=== PATIENT | male | born 1970 | race African-American/Black ===

== ENCOUNTER 2019-08-16 10:02 | Inpatient (IN) ==
[2019-08-16] MEDS ORDERED: ACETAMINOPHEN 500 MG TABLET PO STA (10:36)
[2019-08-16 10:59] LABS: Basophils % 0.2 % (0.0-0.8); Hematocrit 38.5 VOL% (42.0-52.0); Hemoglobin 12.4 GM/DL (14.0-18.0); Immature Granulocytes % 0.3 %; Immature Granulocytes Absolute 0.02 #; Lymphocytes # 0.2 10*3/uL (1.4-4.0); Lymphocytes % 3.8 % (21.2-54.2); Mean Corpuscular HGB Conc 32.2 GM/DL (32-36); Mean Platelet Volume 9.2 FL (9.6-12.0); Monocytes % 4.7 % (1.7-12.7); Platelet Count 248 T/CUMM (130-400); Red Blood Count 4.53 MC/CUMM (3.8-5.5); Red Cell Distribution Width 13.1 % (9.3-17.3); White Blood Count 6.1 T/CUMM (4-12)
[2019-08-16 11:29] LABS: Alanine Aminotransferase 20 U/L (16-61); Albumin 3.1 G/DL (3.4-5.0); Alkaline Phosphatase 63 U/L (45-117); Aspartate Amino Transferase 24 U/L (0-37); Blood Urea Nitrogen 14 MG/DL (7-18); Calcium 9.3 MG/DL (8.5-10.1); Estimated Glom Filtration Rate 97 ML/MIN; Glucose 187 MG/DL (74-106); Osmolality,Calculated 275.1 MOS/KG (273-304); Total Protein 7.8 G/DL (6.4-8.3)
[2019-08-16 11:33] LABS: Anisocytosis 1+; Band Neutrophils 6 % (0-10); Eosinophils 1 % (0-10); Segmented Neutrophils 87 % (50-85); Total Cells Counted 100
[2019-08-16 11:34] LABS: Hypochromasia 1+; Microcytosis Slight; Platelet Estimate Normal; Polychromasia Slight
[2019-08-16] MEDS ORDERED: SODIUM CHLORIDE 0.9% 2,000 ML IV STA (11:44)
[2019-08-16] MEDS ORDERED: AZITHROMYCIN INJ 500 MG in SODIUM CHLORIDE 0.9% 250 ML IV STA (11:56)
[2019-08-16] MEDS ORDERED: cefTRIAXone 1,000 MG VIAL ONE (11:56)
[2019-08-16] MEDS ORDERED: cefTRIAXone 1,000 MG in SODIUM CHLORIDE 0.9% 100 ML IV STA (11:56)
[2019-08-16] MEDS ORDERED: ONDANSETRON 4 MG/2 ML VIAL IV PRN (12:42)
[2019-08-16] MEDS ORDERED: DEXTROSE 10% 250 ML BAG IV PRN (12:42)
[2019-08-16] MEDS ORDERED: GLUCAGON 1 MG VIAL IM PRN (12:42)
[2019-08-16] MEDS: SODIUM CHLORIDE 0.9% 1,000 ML IV SCH (16:36)
[2019-08-16] MEDS: PIPERACILLIN/TAZOBACTAM 3,375 MG in SODIUM CHLORIDE 0.9% 100 ML IV SCH (16:37)
[2019-08-16] MEDS: POTASSIUM CHLORIDE 20 MEQ TABLET PO PRN (16:37)
[2019-08-16] MEDS: ENOXAPARIN 40 MG/0.4 ML SYRINGE SUBCUT SCH (16:37)
[2019-08-16] MEDS ORDERED: AZITHROMYCIN INJ 500 MG in SODIUM CHLORIDE 0.9% 250 ML IV SCH (20:00)
[2019-08-16] MEDS: VANCOMYCIN INJ 1,250 MG in SODIUM CHLORIDE 0.9% 250 ML IV SCH (20:14)
[2019-08-16] MEDS: AZITHROMYCIN 250 MG TABLET PO SCH (20:14)
[2019-08-16 20:20] LABS: Apearance,Urine CLEAR (Clear); Bilirubin,Urine Negative (Negative); Blood, Urine Negative (Negative); Glucose,Urine (UA) Negative (Negative); Ketones,Urine Negative (Negative); Mucus,Urine Occasional /LPF (Occasional); Nitrite,Urine Negative (Negative); Protein,Urine Negative; RBC,Urine 1 /HPF (0-4); Urine Color Yellow (Yellow); Urine Specific Gravity 1.013 (1.001-1.035); Urine Urobilinogen < 2.0 EU/DL (0.2-1.0); WBC,Urine 2 /HPF (0-6)
[2019-08-16] MEDS: ACETAMINOPHEN 325 MG TABLET PO PRN (22:38)
[2019-08-17] MEDS: PIPERACILLIN/TAZOBACTAM 3,375 MG in SODIUM CHLORIDE 0.9% 100 ML IV SCH ×3 (00:36→16:02)
[2019-08-17] MEDS: ACETAMINOPHEN 325 MG TABLET PO PRN ×3 (03:24→20:05)
[2019-08-17] MEDS ORDERED: IBUPROFEN 600 MG TABLET PO ONE (03:54)
[2019-08-17 04:01] LABS: Eosinophils % 0.2 % (0.00-10.9); Hematocrit 38.3 VOL% (42.0-52.0); Hemoglobin 11.9 GM/DL (14.0-18.0); Immature Granulocytes % 0.4 %; Immature Granulocytes Absolute 0.02 #; Lymphocytes # 0.3 10*3/uL (1.4-4.0); Lymphocytes % 6.4 % (21.2-54.2); Mean Corpuscular HGB Conc 31.1 GM/DL (32-36); Mean Platelet Volume 9.3 FL (9.6-12.0); Monocytes % 6.6 % (1.7-12.7); Neutrophils % 86.4 % (38.7-73.9); Platelet Count 224 T/CUMM (130-400); Red Cell Distribution Width 13.2 % (9.3-17.3); White Blood Count 4.6 T/CUMM (4-12)
[2019-08-17 04:21] LABS: Albumin 2.8 G/DL (3.4-5.0); Bilirubin,Total 0.8 MG/DL (0.2-1.0); Calcium 8.6 MG/DL (8.5-10.1); Osmolality,Calculated 272.8 MOS/KG (273-304); Risk Ratio 3.33; Thyroid Stimulating Hormone 0.527 uIU/ml (0.358-3.74); Total Protein 7.5 G/DL (6.4-8.3); VLDL CHOLESTEROL 16.4 MG/DL
[2019-08-17] MEDS: hydroCHLOROthiazide 25 MG TABLET PO SCH (08:04)
[2019-08-17] MEDS: FOLIC ACID 1 MG TABLET PO SCH (08:04)
[2019-08-17] MEDS: predniSONE 10 MG TABLET PO SCH (08:05)
[2019-08-17] MEDS: VANCOMYCIN INJ 1,250 MG in SODIUM CHLORIDE 0.9% 250 ML IV SCH ×2 (08:05→19:55)
[2019-08-17] MEDS ORDERED: AZITHROMYCIN INJ 500 MG in SODIUM CHLORIDE 0.9% 250 ML IV SCH (09:00)
[2019-08-17] MEDS ORDERED: cefTRIAXone 1,000 MG in SYRINGE 1 EACH IV SCH (09:00)
[2019-08-17] MEDS: ENOXAPARIN 40 MG/0.4 ML SYRINGE SUBCUT SCH (13:18)
[2019-08-17] MEDS: AZITHROMYCIN 250 MG TABLET PO SCH (20:05)
[2019-08-17] MEDS ORDERED: ETOMIDATE 20 MG/10 ML VIAL IV ONE (22:50)
[2019-08-17] MEDS ORDERED: SUCCINYLCHOLINE 200 MG/10 ML VIAL ONE (22:51)
[2019-08-17 23:11] LABS: ABG Base Excess 3.1 MMOL/L (-2.5-2.5); ABG HCO3 26.6 MMOL/L (20-26); ABG Oxygen Saturation 73.2 % (95-100); ABG PCO2 33.8 MM HG (35-48); ABG PH 7.494 (7.35-7.45); ABG TCO2 22.7 MMOL/L (23-27)
[2019-08-17 23:15] LABS: ABG PO2 38.3 MM HG (80-95)
[2019-08-17] MEDS ORDERED: LORazepam 2 MG/1 ML VIAL ONE (23:43)
[2019-08-18] MEDS ORDERED: FAMOTIDINE 20 MG/2 ML VIAL IV ONE (00:03)
[2019-08-18] MEDS ORDERED: diphenhydrAMINE 50 MG/1 ML VIAL IV ONE (00:03)
[2019-08-18] MEDS: CISATRACURIUM 200 MG in SODIUM CHLORIDE 0.9% 180 ML IV SCH ×4 (00:25→16:41)
[2019-08-18] MEDS: fentaNYL INJ 1,250 MCG in SODIUM CHLORIDE 0.9% 225 ML IV PRN (00:26)
[2019-08-18] MEDS: ACETAMINOPHEN 325 MG TABLET PO PRN (00:58)
[2019-08-18] MEDS: SODIUM CHLORIDE 0.9% 1,000 ML IV SCH (01:30)
[2019-08-18] MEDS ORDERED: ETOMIDATE 20 MG/10 ML VIAL IV ONE ×2 (01:34)
[2019-08-18] MEDS ORDERED: SUCCINYLCHOLINE 200 MG/10 ML VIAL IV ONE ×2 (01:34→01:35)
[2019-08-18 02:09] LABS: Apearance,Urine CLEAR (Clear); Bilirubin,Urine Negative (Negative); Blood, Urine Negative (Negative); Glucose,Urine (UA) Negative (Negative); Hyaline Casts,Urine 3 /LPF (0-3); Ketones,Urine Negative (Negative); Mucus,Urine Occasional /LPF (Occasional); Nitrite,Urine Negative (Negative); Protein,Urine 100 MG/DL; RBC,Urine 6 /HPF (0-4); Squamous Epithelial Cell,Urine Occasional /HPF (0-10); Urine Color Yellow (Yellow); Urine Specific Gravity 1.019 (1.001-1.035); Urine Urobilinogen < 2.0 EU/DL (0.2-1.0); WBC,Urine 3 /HPF (0-6)
[2019-08-18] MEDS: PIPERACILLIN/TAZOBACTAM 3,375 MG in SODIUM CHLORIDE 0.9% 100 ML IV SCH ×3 (02:30→17:28)
[2019-08-18 04:18] LABS: ABG Base Excess 0.5 MMOL/L (-2.5-2.5); ABG HCO3 24.8 MMOL/L (20-26); ABG Oxygen Saturation 96.8 % (95-100); ABG PCO2 64.7 MM HG (35-48); ABG PH 7.264 (7.35-7.45); ABG TCO2 26.4 MMOL/L (23-27); Allen Test Positive; Pt O2 Delivery Device Ventilator
[2019-08-18 06:05] LABS: Basophils % 0.2 % (0.0-0.8); Eosinophils % 0.5 % (0.00-10.9); Hematocrit 39.4 VOL% (42.0-52.0); Hemoglobin 12.6 GM/DL (14.0-18.0); Immature Granulocytes % 0.3 %; Immature Granulocytes Absolute 0.02 #; Lymphocytes # 0.2 10*3/uL (1.4-4.0); Lymphocytes % 2.9 % (21.2-54.2); Mean Corpuscular Volume 87.4 FL (87-102); Mean Platelet Volume 9.5 FL (9.6-12.0); Monocytes % 3.6 % (1.7-12.7); Neutrophils % 92.5 % (38.7-73.9); Platelet Count 216 T/CUMM (130-400); Red Blood Count 4.51 MC/CUMM (3.8-5.5); Red Cell Distribution Width 13.2 % (9.3-17.3); White Blood Count 5.8 T/CUMM (4-12)
[2019-08-18] MEDS ORDERED: SODIUM BICARBONATE 50 MEQ/50 ML VIAL IV ONE (06:19)
[2019-08-18 06:34] LABS: Band Neutrophils 5 % (0-10); Lymphocytes 2 % (20-55); Platelet Estimate Adequate; Segmented Neutrophils 91 % (50-85); Total Cells Counted 100
[2019-08-18 06:35] LABS: Microcytosis Slight
[2019-08-18 06:37] LABS: Albumin 2.8 G/DL (3.4-5.0); Bilirubin,Total 0.5 MG/DL (0.2-1.0); Calcium 8.8 MG/DL (8.5-10.1); Osmolality,Calculated 274.8 MOS/KG (273-304); Total Protein 7.8 G/DL (6.4-8.3)
[2019-08-18] MEDS: FOLIC ACID 1 MG TABLET PO SCH (08:08)
[2019-08-18] MEDS: hydroCHLOROthiazide 25 MG TABLET PO SCH (08:08)
[2019-08-18] MEDS: predniSONE 10 MG TABLET PO SCH (08:08)
[2019-08-18] MEDS ORDERED: AZITHROMYCIN 250 MG TABLET PO SCH (09:00)
[2019-08-18] MEDS: VANCOMYCIN INJ 1,250 MG in SODIUM CHLORIDE 0.9% 250 ML IV SCH ×2 (10:59→21:14)
[2019-08-18] MEDS: HYDROXYCHLOROQUINE 200 MG TABLET PO SCH (12:00)
[2019-08-18] MEDS: ENOXAPARIN 40 MG/0.4 ML SYRINGE SUBCUT SCH (12:27)
[2019-08-18] MEDS: DOPamine 800 MG/250 ML PREMIX IV PRN (15:00)
[2019-08-18] MEDS: AZITHROMYCIN 250 MG TABLET PO SCH (21:14)
[2019-08-18] MEDS: methylPREDNISolone SOD SUC 40 MG/1 ML VIAL IV SCH (21:14)
[2019-08-19] MEDS: PIPERACILLIN/TAZOBACTAM 3,375 MG in SODIUM CHLORIDE 0.9% 100 ML IV SCH ×3 (00:49→16:13)
[2019-08-19] MEDS: HYDROXYCHLOROQUINE 200 MG TABLET PO SCH ×2 (00:49→12:00)
[2019-08-19] MEDS: ACETAMINOPHEN 325 MG TABLET PO PRN (02:15)
[2019-08-19 02:53] LABS: Eosinophils % 0.2 % (0.00-10.9); Hemoglobin 13.3 GM/DL (14.0-18.0); Immature Granulocytes % 0.4 %; Immature Granulocytes Absolute 0.02 #; Lymphocytes # 0.2 10*3/uL (1.4-4.0); Lymphocytes % 3.9 % (21.2-54.2); Mean Corpuscular HGB Conc 31.7 GM/DL (32-36); Mean Platelet Volume 9.7 FL (9.6-12.0); Monocytes % 4.3 % (1.7-12.7); Neutrophils % 91.2 % (38.7-73.9); Platelet Count 241 T/CUMM (130-400); Red Blood Count 4.83 MC/CUMM (3.8-5.5); Red Cell Distribution Width 12.7 % (9.3-17.3); White Blood Count 5.4 T/CUMM (4-12)
[2019-08-19 03:10] LABS: Albumin 2.5 G/DL (3.4-5.0); Bilirubin,Total 0.4 MG/DL (0.2-1.0); Calcium 8.9 MG/DL (8.5-10.1); Total Protein 7.5 G/DL (6.4-8.3)
[2019-08-19 03:58] LABS: ABG Base Excess 3.6 MMOL/L (-2.5-2.5); ABG HCO3 27.6 MMOL/L (20-26); ABG Oxygen Saturation 95.6 % (95-100); ABG PCO2 60.3 MM HG (35-48); ABG PH 7.325 (7.35-7.45); ABG PO2 86.4 MM HG (80-95)
[2019-08-19 04:16] LABS: Lymphocytes 5 % (20-55); Platelet Estimate Normal; Segmented Neutrophils 92 % (50-85); Total Cells Counted 100
[2019-08-19 04:17] LABS: Microcytosis 2+
[2019-08-19 04:19] LABS: Hypochromasia Slight
[2019-08-19] MEDS: fentaNYL INJ 1,250 MCG in SODIUM CHLORIDE 0.9% 225 ML IV PRN ×2 (04:24→18:29)
[2019-08-19] MEDS: POTASSIUM CHLORIDE 20 MEQ TABLET PO PRN (06:22)
[2019-08-19] MEDS: CISATRACURIUM 200 MG in SODIUM CHLORIDE 0.9% 180 ML IV SCH ×2 (06:23→21:15)
[2019-08-19] MEDS: hydroCHLOROthiazide 25 MG TABLET PO SCH (09:37)
[2019-08-19] MEDS: methylPREDNISolone SOD SUC 40 MG/1 ML VIAL IV SCH ×2 (09:39→21:57)
[2019-08-19] MEDS: FOLIC ACID 1 MG TABLET PO SCH (09:40)
[2019-08-19] MEDS: VANCOMYCIN INJ 1,250 MG in SODIUM CHLORIDE 0.9% 250 ML IV SCH (11:34)
[2019-08-19] MEDS: ENOXAPARIN 40 MG/0.4 ML SYRINGE SUBCUT SCH (13:46)
[2019-08-19] MEDS: DOPamine 800 MG/250 ML PREMIX IV PRN (17:56)
[2019-08-19] MEDS: AZITHROMYCIN 250 MG TABLET PO SCH (21:57)
[2019-08-20] MEDS: HYDROXYCHLOROQUINE 200 MG TABLET PO SCH ×2 (00:34→09:15)
[2019-08-20] MEDS: CISATRACURIUM 200 MG in SODIUM CHLORIDE 0.9% 180 ML IV SCH ×4 (00:35→23:17)
[2019-08-20] MEDS: PIPERACILLIN/TAZOBACTAM 3,375 MG in SODIUM CHLORIDE 0.9% 100 ML IV SCH ×3 (00:36→17:05)
[2019-08-20 04:02] LABS: ABG HCO3 29.7 MMOL/L (20-26); ABG Oxygen Saturation 93.8 % (95-100); ABG PCO2 56.1 MM HG (35-48); ABG PH 7.374 (7.35-7.45); ABG PO2 72.5 MM HG (80-95); ABG TCO2 29.4 MMOL/L (23-27); Allen Test Positive; Pt O2 Delivery Device Ventilator
[2019-08-20 04:39] LABS: Immature Granulocytes % 0.2 %; Immature Granulocytes Absolute 0.01 #; Lymphocytes # 0.1 10*3/uL (1.4-4.0); Lymphocytes % 2.2 % (21.2-54.2); Mean Corpuscular HGB Conc 31.4 GM/DL (32-36); Mean Corpuscular Volume 87.7 FL (87-102); Mean Platelet Volume 9.7 FL (9.6-12.0); Monocytes % 6.3 % (1.7-12.7); Neutrophils % 91.3 % (38.7-73.9); Platelet Count 240 T/CUMM (130-400); Red Blood Count 3.99 MC/CUMM (3.8-5.5); Red Cell Distribution Width 13.2 % (9.3-17.3); White Blood Count 4.6 T/CUMM (4-12)
[2019-08-20 05:01] LABS: Band Neutrophils 1 % (0-10); Eosinophils 1 % (0-10); Lymphocytes 4 % (20-55); Segmented Neutrophils 90 % (50-85); Total Cells Counted 100
[2019-08-20 05:02] LABS: Platelet Estimate Normal
[2019-08-20 05:11] LABS: Calcium 9.1 MG/DL (8.5-10.1); Osmolality,Calculated 287.4 MOS/KG (273-304)
[2019-08-20] MEDS: fentaNYL INJ 1,250 MCG in SODIUM CHLORIDE 0.9% 225 ML IV PRN ×2 (08:35→22:32)
[2019-08-20] MEDS: FOLIC ACID 1 MG TABLET PO SCH (09:15)
[2019-08-20] MEDS: methylPREDNISolone SOD SUC 40 MG/1 ML VIAL IV SCH ×2 (09:26→17:05)
[2019-08-20] MEDS: hydroCHLOROthiazide 25 MG TABLET PO SCH (09:26)
[2019-08-20] MEDS ORDERED: DEXTROSE 50% 25 GM/50 ML VIAL IV PRN (11:27)
[2019-08-20] MEDS: ENOXAPARIN 40 MG/0.4 ML SYRINGE SUBCUT SCH (13:15)
[2019-08-20] MEDS: INSULIN REGULAR 100 UNIT/ML SUBCUT SCH ×2 (13:15→18:38)
[2019-08-20] MEDS: AZITHROMYCIN 250 MG TABLET PO SCH (20:52)
[2019-08-21] MEDS: methylPREDNISolone SOD SUC 40 MG/1 ML VIAL IV SCH ×3 (00:29→16:17)
[2019-08-21] MEDS: INSULIN REGULAR 100 UNIT/ML SUBCUT SCH ×4 (00:29→17:37)
[2019-08-21] MEDS: HYDROXYCHLOROQUINE 200 MG TABLET PO SCH ×2 (00:29→11:00)
[2019-08-21] MEDS: PIPERACILLIN/TAZOBACTAM 3,375 MG in SODIUM CHLORIDE 0.9% 100 ML IV SCH ×3 (00:29→16:17)
[2019-08-21 04:24] LABS: ABG HCO3 28.8 MMOL/L (20-26); ABG Oxygen Saturation 95.2 % (95-100); ABG PH 7.279 (7.35-7.45); ABG PO2 91.9 MM HG (80-95); Allen Test Positive; Pt O2 Delivery Device Ventilator
[2019-08-21 04:31] LABS: ABG PCO2 74.6 MM HG (35-48)
[2019-08-21 04:57] LABS: Hemoglobin 12.2 GM/DL (14.0-18.0); Immature Granulocytes % 0.7 %; Immature Granulocytes Absolute 0.04 #; Lymphocytes # 0.2 10*3/uL (1.4-4.0); Lymphocytes % 2.8 % (21.2-54.2); Mean Corpuscular HGB Conc 34.9 GM/DL (32-36); Mean Corpuscular Volume 89.3 FL (87-102); Monocytes % 4.2 % (1.7-12.7); Neutrophils % 92.3 % (38.7-73.9); Platelet Count 236 T/CUMM (130-400); Red Blood Count 3.92 MC/CUMM (3.8-5.5); Red Cell Distribution Width 13.5 % (9.3-17.3); White Blood Count 5.7 T/CUMM (4-12)
[2019-08-21 05:10] LABS: Calcium 9.2 MG/DL (8.5-10.1)
[2019-08-21 05:18] LABS: Hypochromasia 1+; Platelet Estimate Adequate; Segmented Neutrophils 92 % (50-85); Total Cells Counted 100
[2019-08-21 05:19] LABS: Microcytosis Slight
[2019-08-21 05:24] LABS: Prealbumin 14.4 MG/DL (20-40)
[2019-08-21] MEDS: CISATRACURIUM 200 MG in SODIUM CHLORIDE 0.9% 180 ML IV SCH ×2 (09:28→23:28)
[2019-08-21] MEDS: hydroCHLOROthiazide 25 MG TABLET PO SCH (11:00)
[2019-08-21] MEDS: INSULIN GLARGINE 100 UNIT/ML SUBCUT SCH (11:00)
[2019-08-21] MEDS: FOLIC ACID 1 MG TABLET PO SCH (11:00)
[2019-08-21] MEDS: ENOXAPARIN 40 MG/0.4 ML SYRINGE SUBCUT SCH (11:50)
[2019-08-21] MEDS: fentaNYL INJ 1,250 MCG in SODIUM CHLORIDE 0.9% 225 ML IV PRN (16:05)
[2019-08-21] MEDS ORDERED: ROCURONIUM IV SCH (18:30)
[2019-08-21] MEDS ORDERED: SODIUM CHLORIDE 0.9% IV SCH (18:30)
[2019-08-21] MEDS ORDERED: MIDAZOLAM 10 MG/2 ML VIAL ONE (21:55)
[2019-08-21] MEDS ORDERED: VECURONIUM 10 MG VIAL IV ONE ×2 (22:01→22:30)
[2019-08-21] MEDS ORDERED: MIDAZOLAM 2 MG/2 ML VIAL IV ONE (22:05)
[2019-08-22] MEDS: HYDROXYCHLOROQUINE 200 MG TABLET PO SCH ×2 (00:25→10:52)
[2019-08-22] MEDS: PIPERACILLIN/TAZOBACTAM 3,375 MG in SODIUM CHLORIDE 0.9% 100 ML IV SCH ×4 (00:25→23:07)
[2019-08-22] MEDS: INSULIN REGULAR 100 UNIT/ML SUBCUT SCH ×4 (00:25→17:40)
[2019-08-22] MEDS: methylPREDNISolone SOD SUC 40 MG/1 ML VIAL IV SCH ×3 (00:26→16:00)
[2019-08-22 04:51] LABS: Allen Test Positive; Pt O2 Delivery Device Ventilator
[2019-08-22 04:52] LABS: ABG Base Excess 6.6 MMOL/L (-2.5-2.5); ABG HCO3 32.1 MMOL/L (20-26); ABG Oxygen Saturation 95.1 % (95-100); ABG PCO2 50.8 MM HG (35-48); ABG PH 7.419 (7.35-7.45); ABG PO2 81.9 MM HG (80-95); ABG TCO2 33.7 MMOL/L (23-27)
[2019-08-22 05:43] LABS: Calcium 9.2 MG/DL (8.5-10.1); Osmolality,Calculated 295.1 MOS/KG (273-304)
[2019-08-22 05:52] LABS: Immature Granulocytes % 0.6 %; Immature Granulocytes Absolute 0.04 #; Lymphocytes # 0.2 10*3/uL (1.4-4.0); Lymphocytes % 2.2 % (21.2-54.2); Mean Corpuscular HGB Conc 31.3 GM/DL (32-36); Mean Corpuscular Volume 89.1 FL (87-102); Mean Platelet Volume 9.9 FL (9.6-12.0); Monocytes % 6.6 % (1.7-12.7); Neutrophils % 90.6 % (38.7-73.9); Platelet Count 256 T/CUMM (130-400); Red Blood Count 3.94 MC/CUMM (3.8-5.5); Red Cell Distribution Width 13.7 % (9.3-17.3); White Blood Count 7.3 T/CUMM (4-12)
[2019-08-22 06:01] LABS: Hematocrit 35.1 VOL% (42.0-52.0)
[2019-08-22 06:04] LABS: Anisocytosis Slight; Band Neutrophils 2 % (0-10); Lymphocytes 2 % (20-55); Platelet Estimate Normal; Segmented Neutrophils 91 % (50-85); Total Cells Counted 100
[2019-08-22] MEDS: FOLIC ACID 1 MG TABLET PO SCH (08:00)
[2019-08-22] MEDS: hydroCHLOROthiazide 25 MG TABLET PO SCH (08:00)
[2019-08-22] MEDS: INSULIN GLARGINE 100 UNIT/ML SUBCUT SCH (08:01)
[2019-08-22] MEDS: CISATRACURIUM 200 MG in SODIUM CHLORIDE 0.9% 180 ML IV SCH ×2 (08:30→21:06)
[2019-08-22] MEDS ORDERED: FUROSEMIDE 40 MG/4 ML VIAL IV ONE (09:01)
[2019-08-22] MEDS: fentaNYL INJ 1,250 MCG in SODIUM CHLORIDE 0.9% 225 ML IV PRN ×3 (11:35→23:13)
[2019-08-22] MEDS: ENOXAPARIN 40 MG/0.4 ML SYRINGE SUBCUT SCH (13:03)
[2019-08-23] MEDS: MINERAL OIL/PETROLATUM OPH OINT 3.5 GM TUBE BOTH EYES SCH ×3 (01:19→14:23)
[2019-08-23] MEDS: CISATRACURIUM 200 MG in SODIUM CHLORIDE 0.9% 180 ML IV SCH ×4 (01:19→23:21)
[2019-08-23] MEDS: HYDROXYCHLOROQUINE 200 MG TABLET PO SCH (01:19)
[2019-08-23] MEDS: INSULIN REGULAR 100 UNIT/ML SUBCUT SCH ×4 (01:21→17:28)
[2019-08-23] MEDS: PIPERACILLIN/TAZOBACTAM 3,375 MG in SODIUM CHLORIDE 0.9% 100 ML IV SCH ×3 (01:21→15:10)
[2019-08-23] MEDS: methylPREDNISolone SOD SUC 40 MG/1 ML VIAL IV SCH ×3 (01:21→16:56)
[2019-08-23] MEDS: fentaNYL INJ 1,250 MCG in SODIUM CHLORIDE 0.9% 225 ML IV PRN ×5 (04:13→21:06)
[2019-08-23 04:17] LABS: ABG Base Excess 7.7 MMOL/L (-2.5-2.5); ABG HCO3 31.5 MMOL/L (20-26); ABG Oxygen Saturation 99.6 % (95-100); ABG PCO2 52.2 MM HG (35-48); ABG PH 7.418 (7.35-7.45); ABG TCO2 30.1 MMOL/L (23-27); Allen Test Positive; Pt O2 Delivery Device Ventilator
[2019-08-23 05:21] LABS: Basophils % 0.1 % (0.0-0.8); Hematocrit 36.8 VOL% (42.0-52.0); Hemoglobin 11.2 GM/DL (14.0-18.0); Immature Granulocytes % 0.9 %; Immature Granulocytes Absolute 0.09 #; Lymphocytes # 0.1 10*3/uL (1.4-4.0); Lymphocytes % 1.1 % (21.2-54.2); Mean Corpuscular HGB Conc 30.4 GM/DL (32-36); Mean Corpuscular Volume 90.4 FL (87-102); Monocytes % 5.7 % (1.7-12.7); Neutrophils % 92.2 % (38.7-73.9); Platelet Count 275 T/CUMM (130-400); Red Blood Count 4.07 MC/CUMM (3.8-5.5); Red Cell Distribution Width 13.6 % (9.3-17.3)
[2019-08-23 05:25] LABS: Calcium 9.7 MG/DL (8.5-10.1)
[2019-08-23 05:46] LABS: Band Neutrophils 2 % (0-10); Lymphocytes 2 % (20-55); Segmented Neutrophils 91 % (50-85); Total Cells Counted 100
[2019-08-23 05:47] LABS: Hypochromasia 1+; Microcytosis Slight; Platelet Estimate Adequate
[2019-08-23] MEDS: FOLIC ACID 1 MG TABLET PO SCH (08:02)
[2019-08-23] MEDS: hydroCHLOROthiazide 25 MG TABLET PO SCH (08:03)
[2019-08-23] MEDS: INSULIN GLARGINE 100 UNIT/ML SUBCUT SCH (08:03)
[2019-08-23] MEDS: ACETAMINOPHEN 325 MG TABLET PO PRN (10:30)
[2019-08-23 11:13] LABS: Allen Test Positive; Pt O2 Delivery Device Ventilator
[2019-08-23 11:17] LABS: ABG Oxygen Saturation 99.3 % (95-100); ABG PO2 340.4 MM HG (80-95); ABG TCO2 43.8 MMOL/L (23-27)
[2019-08-23 11:20] LABS: ABG PH 7.008 (7.35-7.45)
[2019-08-23] MEDS: ENOXAPARIN 40 MG/0.4 ML SYRINGE SUBCUT SCH (12:05)
[2019-08-23 16:17] LABS: ABG Base Excess 3.8 MMOL/L (-2.5-2.5); ABG HCO3 27.8 MMOL/L (20-26); ABG Oxygen Saturation 98.3 % (95-100); ABG TCO2 38.9 MMOL/L (23-27); Allen Test Positive; Pt O2 Delivery Device Ventilator
[2019-08-23 16:20] LABS: ABG PH 7.069 (7.35-7.45)
[2019-08-23 19:52] LABS: ABG Base Excess 7.4 MMOL/L (-2.5-2.5); ABG HCO3 31.1 MMOL/L (20-26); ABG Oxygen Saturation 90.5 % (95-100); ABG TCO2 36.6 MMOL/L (23-27); Allen Test Positive; Pt O2 Delivery Device Ventilator
[2019-08-23 19:56] LABS: ABG PH 7.206 (7.35-7.45)
[2019-08-24] MEDS: CISATRACURIUM 200 MG in SODIUM CHLORIDE 0.9% 180 ML IV SCH ×3 (00:30→23:54)
[2019-08-24] MEDS: MINERAL OIL/PETROLATUM OPH OINT 3.5 GM TUBE BOTH EYES SCH ×4 (02:49→21:17)
[2019-08-24] MEDS: INSULIN REGULAR 100 UNIT/ML SUBCUT SCH ×4 (02:49→17:56)
[2019-08-24] MEDS: fentaNYL INJ 1,250 MCG in SODIUM CHLORIDE 0.9% 225 ML IV PRN ×5 (02:51→23:49)
[2019-08-24] MEDS: methylPREDNISolone SOD SUC 40 MG/1 ML VIAL IV SCH ×3 (04:01→17:56)
[2019-08-24 04:53] LABS: ABG Base Excess 11.5 MMOL/L (-2.5-2.5); ABG HCO3 39.2 MMOL/L (20-26); ABG Oxygen Saturation 94.3 % (95-100); ABG PH 7.367 (7.35-7.45); ABG PO2 71.6 MM HG (80-95); ABG TCO2 41.4 MMOL/L (23-27); Allen Test Positive; Pt O2 Delivery Device Ventilator
[2019-08-24 05:02] LABS: INR 1.1; PT Patient Result 11.3 SECS (9.8-11.9); Partial Thromboplastin Time 31.5 SECS (23.9-33.8)
[2019-08-24 05:04] LABS: ABG PCO2 69.9 MM HG (35-48)
[2019-08-24 05:09] LABS: Basophils % 0.1 % (0.0-0.8); Hematocrit 37.8 VOL% (42.0-52.0); Immature Granulocytes % 0.8 %; Immature Granulocytes Absolute 0.07 #; Lymphocytes # 0.1 10*3/uL (1.4-4.0); Lymphocytes % 1.6 % (21.2-54.2); Mean Corpuscular HGB Conc 29.1 GM/DL (32-36); Mean Platelet Volume 10.2 FL (9.6-12.0); Monocytes % 7.9 % (1.7-12.7); Neutrophils % 89.6 % (38.7-73.9); Platelet Count 299 T/CUMM (130-400); Red Blood Count 3.98 MC/CUMM (3.8-5.5); Red Cell Distribution Width 13.2 % (9.3-17.3); White Blood Count 8.3 T/CUMM (4-12)
[2019-08-24 05:16] LABS: Alanine Aminotransferase 23 U/L (16-61); Albumin 1.9 G/DL (3.4-5.0); Alkaline Phosphatase 58 U/L (45-117); Aspartate Amino Transferase 18 U/L (0-37); Bilirubin,Direct < 0.100 MG/DL (0.0-0.20); Bilirubin,Indirect 0.3 MG/DL (0.0-1.0); Bilirubin,Total < 0.39 MG/DL (0.2-1.0); Ferritin 1173.2 ng/ml (26-388); Total Protein 5.5 G/DL (6.4-8.3); Triglycerides 335 MG/DL (2-150)
[2019-08-24 05:34] LABS: Lymphocytes 3 % (20-55); Platelet Estimate Normal; Polychromasia Few; Segmented Neutrophils 94 % (50-85); Total Cells Counted 100
[2019-08-24 05:37] LABS: Calcium 9.4 MG/DL (8.5-10.1)
[2019-08-24 05:39] LABS: Osmolality,Calculated 300.6 MOS/KG (273-304)
[2019-08-24] MEDS: hydroCHLOROthiazide 25 MG TABLET PO SCH (08:02)
[2019-08-24] MEDS: INSULIN GLARGINE 100 UNIT/ML SUBCUT SCH (08:02)
[2019-08-24] MEDS: FOLIC ACID 1 MG TABLET PO SCH (08:02)
[2019-08-24] MEDS: MIDAZOLAM 100 MG in SODIUM CHLORIDE 0.9% 80 ML IV PRN ×2 (10:11→23:03)
[2019-08-24] MEDS: ENOXAPARIN 40 MG/0.4 ML SYRINGE SUBCUT SCH (12:50)
[2019-08-24] MEDS: fentaNYL 100 MCG/HR PATCH TRANSDERM SCH (14:28)
[2019-08-24] MEDS ORDERED: MIDAZOLAM 2 MG/2 ML VIAL ONE (14:33)
[2019-08-24] MEDS ORDERED: MIDAZOLAM 2 MG/2 ML VIAL IV ONE (14:36)
[2019-08-24 16:15] LABS: ABG Base Excess 5.8 MMOL/L (-2.5-2.5); ABG HCO3 29.2 MMOL/L (20-26); ABG Oxygen Saturation 80.7 % (95-100); ABG PO2 64.2 MM HG (80-95); ABG TCO2 41.8 MMOL/L (23-27)
[2019-08-24 16:18] LABS: ABG PH 7.064 (7.35-7.45)
[2019-08-24] MEDS: ACETAMINOPHEN 325 MG/10.15 ML UDCUP PO PRN (17:50)
[2019-08-25] MEDS: INSULIN REGULAR 100 UNIT/ML SUBCUT SCH ×4 (00:34→19:12)
[2019-08-25] MEDS: methylPREDNISolone SOD SUC 40 MG/1 ML VIAL IV SCH ×2 (00:35→10:00)
[2019-08-25] MEDS ORDERED: fentaNYL INJ 1,250 MCG in SODIUM CHLORIDE 0.9% 225 ML IV PRN (01:10)
[2019-08-25] MEDS: fentaNYL INJ 2,500 MCG in SODIUM CHLORIDE 0.9% 450 ML IV PRN ×2 (03:00→10:31)
[2019-08-25] MEDS: ACETAMINOPHEN 325 MG/10.15 ML UDCUP PO PRN ×2 (04:02→10:00)
[2019-08-25 04:05] LABS: ABG Base Excess 11.7 MMOL/L (-2.5-2.5); ABG HCO3 37.4 MMOL/L (20-26); ABG Oxygen Saturation 98.8 % (95-100); ABG PCO2 54.1 MM HG (35-48); ABG PH 7.458 (7.35-7.45); ABG TCO2 39.1 MMOL/L (23-27); Allen Test Positive; Pt O2 Delivery Device Ventilator
[2019-08-25] MEDS: CISATRACURIUM 200 MG in SODIUM CHLORIDE 0.9% 180 ML IV SCH ×2 (04:37→16:41)
[2019-08-25 05:05] LABS: Red Blood Count 4.05 MC/CUMM (3.8-5.5); Red Cell Distribution Width 13.5 % (9.3-17.3)
[2019-08-25 05:14] LABS: Calcium 9.5 MG/DL (8.5-10.1); Osmolality,Calculated 311.3 MOS/KG (273-304)
[2019-08-25 05:26] LABS: Basophils % 0.1 % (0.0-0.8); Hematocrit 38.2 VOL% (42.0-52.0); Immature Granulocytes % 0.9 %; Immature Granulocytes Absolute 0.08 #; Lymphocytes # 0.2 10*3/uL (1.4-4.0); Lymphocytes % 2.8 % (21.2-54.2); Mean Corpuscular HGB Conc 29.1 GM/DL (32-36); Mean Corpuscular Volume 94.3 FL (87-102); Mean Platelet Volume 10.6 FL (9.6-12.0); Monocytes % 4.5 % (1.7-12.7); NRBC # 0.03 10*3/uL; Neutrophils % 91.7 % (38.7-73.9); Platelet Count 357 T/CUMM (130-400); White Blood Count 8.4 T/CUMM (4-12)
[2019-08-25 05:27] LABS: Alanine Aminotransferase 23 U/L (16-61); Albumin 1.8 G/DL (3.4-5.0); Alkaline Phosphatase 60 U/L (45-117); Aspartate Amino Transferase 21 U/L (0-37); Bilirubin,Direct < 0.100 MG/DL (0.0-0.20); Bilirubin,Indirect 0.3 MG/DL (0.0-1.0); Bilirubin,Total < 0.39 MG/DL (0.2-1.0); Ferritin 1395.3 ng/ml (26-388); Total Protein 5.5 G/DL (6.4-8.3); Triglycerides 236 MG/DL (2-150)
[2019-08-25 05:28] LABS: Hemoglobin 11.1 GM/DL (14.0-18.0)
[2019-08-25 05:32] LABS: Hypochromasia 1+; Lymphocytes 4 % (20-55); Platelet Estimate Adequate; Segmented Neutrophils 93 % (50-85); Total Cells Counted 100
[2019-08-25 05:33] LABS: Microcytosis Slight; Ovalocytes Slight
[2019-08-25 05:45] LABS: Prealbumin 13.1 MG/DL (20-40)
[2019-08-25] MEDS: FOLIC ACID 1 MG TABLET PO SCH (10:29)
[2019-08-25] MEDS: MINERAL OIL/PETROLATUM OPH OINT 3.5 GM TUBE BOTH EYES SCH ×3 (10:30→22:01)
[2019-08-25] MEDS: hydroCHLOROthiazide 25 MG TABLET PO SCH (10:30)
[2019-08-25] MEDS: INSULIN GLARGINE 100 UNIT/ML SUBCUT SCH (10:30)
[2019-08-25] MEDS: ENOXAPARIN 40 MG/0.4 ML SYRINGE SUBCUT SCH (12:21)
[2019-08-25] MEDS: MIDAZOLAM 100 MG in SODIUM CHLORIDE 0.9% 80 ML IV PRN (12:22)
[2019-08-25 12:36] LABS: INR 1.1; PT Patient Result 12.1 SECS (9.8-11.9); Partial Thromboplastin Time 29.5 SECS (23.9-33.8)
[2019-08-26] MEDS: methylPREDNISolone SOD SUC 40 MG/1 ML VIAL IV SCH ×2 (00:15→09:17)
[2019-08-26] MEDS: INSULIN REGULAR 100 UNIT/ML SUBCUT SCH ×4 (00:20→23:40)
[2019-08-26] MEDS ORDERED: NOREPINEPHRINE 4 MG/4 ML VIAL IV ONE (01:57)
[2019-08-26] MEDS: MIDAZOLAM 100 MG in SODIUM CHLORIDE 0.9% 80 ML IV PRN ×2 (02:05→16:41)
[2019-08-26 04:01] LABS: ABG Base Excess 9.8 MMOL/L (-2.5-2.5); ABG HCO3 33.6 MMOL/L (20-26); ABG Oxygen Saturation 98.6 % (95-100); ABG PCO2 36.9 MM HG (35-48); ABG PH 7.556 (7.35-7.45); ABG TCO2 26.9 MMOL/L (23-27); Allen Test Positive; Pt O2 Delivery Device Ventilator
[2019-08-26] MEDS: CISATRACURIUM 200 MG in SODIUM CHLORIDE 0.9% 180 ML IV SCH ×2 (05:14→06:56)
[2019-08-26 06:28] LABS: Basophils % 0.1 % (0.0-0.8); Hematocrit 34.8 VOL% (42.0-52.0); Hemoglobin 10.7 GM/DL (14.0-18.0); Immature Granulocytes % 1.3 %; Immature Granulocytes Absolute 0.13 #; Lymphocytes # 0.1 10*3/uL (1.4-4.0); Lymphocytes % 1.4 % (21.2-54.2); Mean Corpuscular HGB Conc 30.7 GM/DL (32-36); Mean Platelet Volume 10.9 FL (9.6-12.0); Monocytes % 6.4 % (1.7-12.7); Neutrophils % 90.8 % (38.7-73.9); Platelet Count 348 T/CUMM (130-400); Red Blood Count 3.91 MC/CUMM (3.8-5.5); Red Cell Distribution Width 14.4 % (9.3-17.3); White Blood Count 9.8 T/CUMM (4-12)
[2019-08-26 06:30] LABS: Calcium 9.7 MG/DL (8.5-10.1); Osmolality,Calculated 323.1 MOS/KG (273-304)
[2019-08-26 06:47] LABS: Band Neutrophils 1 % (0-10); Hypochromasia 1+; Nucleated Red Blood Cells 1 (0-5); Platelet Estimate Adequate; Segmented Neutrophils 94 % (50-85); Total Cells Counted 100
[2019-08-26 06:48] LABS: Microcytosis Slight
[2019-08-26] MEDS: FOLIC ACID 1 MG TABLET PO SCH (09:17)
[2019-08-26] MEDS: INSULIN GLARGINE 100 UNIT/ML SUBCUT SCH (09:17)
[2019-08-26] MEDS: hydroCHLOROthiazide 25 MG TABLET PO SCH (09:17)
[2019-08-26] MEDS: PANTOPRAZOLE 40 MG VIAL IV SCH (09:17)
[2019-08-26] MEDS: MINERAL OIL/PETROLATUM OPH OINT 3.5 GM TUBE BOTH EYES SCH ×3 (09:17→20:10)
[2019-08-26] MEDS: ENOXAPARIN 40 MG/0.4 ML SYRINGE SUBCUT SCH (12:33)
[2019-08-26] MEDS ORDERED: ROCURONIUM 100 MG/10 ML VIAL IV ONE (14:11)
[2019-08-26] MEDS: ROCURONIUM 500 MG in SODIUM CHLORIDE 0.9% 500 ML IV SCH (15:49)
[2019-08-27] MEDS: ROCURONIUM 500 MG in SODIUM CHLORIDE 0.9% 500 ML IV SCH ×4 (01:40→22:07)
[2019-08-27] MEDS: methylPREDNISolone SOD SUC 40 MG/1 ML VIAL IV SCH ×3 (01:43→20:39)
[2019-08-27 04:21] LABS: ABG Base Excess 6.8 MMOL/L (-2.5-2.5); ABG Oxygen Saturation 97.8 % (95-100); ABG PCO2 42.7 MM HG (35-48); ABG PH 7.479 (7.35-7.45); ABG PO2 114.7 MM HG (80-95); ABG TCO2 32.3 MMOL/L (23-27); Allen Test Positive; Pt O2 Delivery Device Ventilator
[2019-08-27 06:13] LABS: Hematocrit 35.1 VOL% (42.0-52.0); Hemoglobin 10.5 GM/DL (14.0-18.0); Immature Granulocytes % 0.6 %; Immature Granulocytes Absolute 0.06 #; Lymphocytes # 0.1 10*3/uL (1.4-4.0); Mean Corpuscular HGB Conc 29.9 GM/DL (32-36); Mean Corpuscular Volume 91.6 FL (87-102); Mean Platelet Volume 10.5 FL (9.6-12.0); Monocytes % 4.6 % (1.7-12.7); NRBC # 0.02 10*3/uL; Neutrophils % 93.8 % (38.7-73.9); Platelet Count 342 T/CUMM (130-400); Red Blood Count 3.83 MC/CUMM (3.8-5.5); Red Cell Distribution Width 14.7 % (9.3-17.3); White Blood Count 9.7 T/CUMM (4-12)
[2019-08-27 06:33] LABS: Calcium 9.6 MG/DL (8.5-10.1); Osmolality,Calculated 331.7 MOS/KG (273-304)
[2019-08-27 06:40] LABS: Band Neutrophils 2 % (0-10); Hypochromasia 1+; Lymphocytes 2 % (20-55); Microcytosis Slight; Segmented Neutrophils 88 % (50-85); Total Cells Counted 100
[2019-08-27 06:41] LABS: Platelet Estimate Normal
[2019-08-27] MEDS: CISATRACURIUM 200 MG in SODIUM CHLORIDE 0.9% 180 ML IV SCH (07:17)
[2019-08-27] MEDS: MIDAZOLAM 100 MG in SODIUM CHLORIDE 0.9% 80 ML IV PRN ×2 (08:00→21:52)
[2019-08-27] MEDS: PANTOPRAZOLE 40 MG VIAL IV SCH (08:23)
[2019-08-27] MEDS: INSULIN REGULAR 100 UNIT/ML SUBCUT SCH ×5 (08:23→23:56)
[2019-08-27] MEDS: hydroCHLOROthiazide 25 MG TABLET PO SCH (08:23)
[2019-08-27] MEDS: INSULIN GLARGINE 100 UNIT/ML SUBCUT SCH ×2 (08:24→20:40)
[2019-08-27] MEDS: FOLIC ACID 1 MG TABLET PO SCH (08:24)
[2019-08-27] MEDS: MINERAL OIL/PETROLATUM OPH OINT 3.5 GM TUBE BOTH EYES SCH ×3 (08:25→20:37)
[2019-08-27] MEDS: fentaNYL 100 MCG/HR PATCH TRANSDERM SCH (08:25)
[2019-08-27] MEDS: hydrALAZINE 20 MG/1 ML VIAL IV PRN (14:12)
[2019-08-27] MEDS: ENOXAPARIN 40 MG/0.4 ML SYRINGE SUBCUT SCH (14:12)
[2019-08-28] MEDS: hydrALAZINE 20 MG/1 ML VIAL IV PRN ×2 (04:30→13:42)
[2019-08-28] MEDS ORDERED: METOPROLOL TARTRATE 5 MG/5 ML VIAL IV ONE (05:26)
[2019-08-28] MEDS: INSULIN REGULAR 100 UNIT/ML SUBCUT SCH ×3 (05:34→17:50)
[2019-08-28 05:43] LABS: Osmolality,Calculated 323.6 MOS/KG (273-304)
[2019-08-28 05:49] LABS: Prealbumin 19.5 MG/DL (20-40)
[2019-08-28 06:02] LABS: ABG HCO3 28.9 MMOL/L (20-26); ABG Oxygen Saturation 98.5 % (95-100); ABG PH 7.386 (7.35-7.45); Allen Test Positive; Pt O2 Delivery Device Ventilator
[2019-08-28 06:27] LABS: Basophils % 0.1 % (0.0-0.8); Hematocrit 37.8 VOL% (42.0-52.0); Hemoglobin 11.2 GM/DL (14.0-18.0); Immature Granulocytes % 0.9 %; Immature Granulocytes Absolute 0.11 #; Lymphocytes # 0.1 10*3/uL (1.4-4.0); Lymphocytes % 0.9 % (21.2-54.2); Mean Corpuscular HGB Conc 29.6 GM/DL (32-36); Mean Corpuscular Volume 92.2 FL (87-102); Mean Platelet Volume 10.7 FL (9.6-12.0); Monocytes % 7.7 % (1.7-12.7); NRBC # 0.02 10*3/uL; Neutrophils % 90.4 % (38.7-73.9); Platelet Count 364 T/CUMM (130-400); Red Cell Distribution Width 14.6 % (9.3-17.3)
[2019-08-28 07:03] LABS: Band Neutrophils 11 % (0-10); Segmented Neutrophils 82 % (50-85); Total Cells Counted 100
[2019-08-28 07:04] LABS: Anisocytosis Slight; Macrocytosis Slight; Platelet Estimate Normal
[2019-08-28] MEDS: ROCURONIUM 500 MG in SODIUM CHLORIDE 0.9% 500 ML IV SCH ×3 (09:00→21:15)
[2019-08-28] MEDS: FOLIC ACID 1 MG TABLET PO SCH (09:07)
[2019-08-28] MEDS: MINERAL OIL/PETROLATUM OPH OINT 3.5 GM TUBE BOTH EYES SCH ×3 (09:08→21:50)
[2019-08-28] MEDS: PANTOPRAZOLE 40 MG VIAL IV SCH (09:08)
[2019-08-28] MEDS: hydroCHLOROthiazide 25 MG TABLET PO SCH (09:08)
[2019-08-28] MEDS: methylPREDNISolone SOD SUC 40 MG/1 ML VIAL IV SCH ×2 (09:08→21:50)
[2019-08-28] MEDS: INSULIN GLARGINE 100 UNIT/ML SUBCUT SCH ×2 (09:08→21:50)
[2019-08-28] MEDS: MIDAZOLAM 100 MG in SODIUM CHLORIDE 0.9% 80 ML IV PRN (11:32)
[2019-08-28] MEDS: ENOXAPARIN 40 MG/0.4 ML SYRINGE SUBCUT SCH (13:43)
[2019-08-28] MEDS ORDERED: MORPHINE 4 MG/1 ML VIAL IV PRN (15:04)
[2019-08-28] MEDS ORDERED: METOPROLOL TARTRATE 5 MG/5 ML VIAL IV PRN (15:50)
[2019-08-28] MEDS: ACETAMINOPHEN 325 MG/10.15 ML UDCUP PO PRN (21:50)
[2019-08-28] MEDS: NIFEdipine 10 MG CAPSULE PO SCH (21:50)
[2019-08-29] MEDS: MIDAZOLAM 100 MG in SODIUM CHLORIDE 0.9% 80 ML IV PRN ×2 (00:25→12:50)
[2019-08-29] MEDS: INSULIN REGULAR 100 UNIT/ML SUBCUT SCH ×4 (01:08→18:25)
[2019-08-29] MEDS: ACETAMINOPHEN 325 MG/10.15 ML UDCUP PO PRN (02:40)
[2019-08-29] MEDS: NIFEdipine 10 MG CAPSULE PO SCH (05:51)
[2019-08-29] MEDS: ROCURONIUM 500 MG in SODIUM CHLORIDE 0.9% 500 ML IV SCH ×2 (06:08→18:18)
[2019-08-29 10:18] LABS: ABG Base Excess 1.9 MMOL/L (-2.5-2.5); ABG Oxygen Saturation 94.7 % (95-100); ABG PCO2 52.5 MM HG (35-48); ABG PH 7.347 (7.35-7.45); ABG PO2 71.3 MM HG (80-95); ABG TCO2 25.1 MMOL/L (23-27)
[2019-08-29] MEDS: FOLIC ACID 1 MG TABLET PO SCH (10:52)
[2019-08-29] MEDS: hydroCHLOROthiazide 25 MG TABLET PO SCH (10:52)
[2019-08-29] MEDS: MINERAL OIL/PETROLATUM OPH OINT 3.5 GM TUBE BOTH EYES SCH ×3 (10:53→22:30)
[2019-08-29] MEDS: PANTOPRAZOLE 40 MG VIAL IV SCH (10:53)
[2019-08-29] MEDS: methylPREDNISolone SOD SUC 40 MG/1 ML VIAL IV SCH ×2 (10:53→18:19)
[2019-08-29] MEDS: INSULIN GLARGINE 100 UNIT/ML SUBCUT SCH ×2 (11:12→21:29)
[2019-08-29] MEDS ORDERED: DILTIAZEM 50 MG/10 ML VIAL IV ONE (13:10)
[2019-08-29] MEDS ORDERED: DILTIAZEM 25 MG/5 ML VIAL IV ONE (13:16)
[2019-08-29] MEDS: ENOXAPARIN 40 MG/0.4 ML SYRINGE SUBCUT SCH (13:23)
[2019-08-29 13:43] LABS: Mean Corpuscular Volume 98.5 FL (87-102); Mean Platelet Volume 10.9 FL (9.6-12.0); NRBC # 0.04 10*3/uL; Red Blood Count 4.77 MC/CUMM (3.8-5.5)
[2019-08-29] MEDS: dilTIAZem Drip 125 MG/125 ML PREMIX IV SCH ×2 (13:50→21:29)
[2019-08-29 14:01] LABS: Calcium 10.1 MG/DL (8.5-10.1); Osmolality,Calculated 336.7 MOS/KG (273-304)
[2019-08-29 14:07] LABS: Basophils % 0.1 % (0.0-0.8); Hemoglobin 13.3 GM/DL (14.0-18.0); Immature Granulocytes % 0.6 %; Immature Granulocytes Absolute 0.15 #; Lymphocytes # 0.1 10*3/uL (1.4-4.0); Lymphocytes % 0.5 % (21.2-54.2); Mean Corpuscular HGB Conc 28.3 GM/DL (32-36); Monocytes % 6.3 % (1.7-12.7); Neutrophils % 92.5 % (38.7-73.9); Platelet Count 345 T/CUMM (130-400); Red Cell Distribution Width 14.6 % (9.3-17.3); White Blood Count 23.9 T/CUMM (4-12)
[2019-08-29 14:53] LABS: Lymphocytes 2 % (20-55); Macrocytosis 1+; Platelet Estimate Adequate; Polychromasia 1+; Segmented Neutrophils 95 % (50-85); Total Cells Counted 100
[2019-08-29 16:14] VITALS: BP 158/106
[2019-08-29] MEDS ORDERED: VANCOMYCIN INJ 1,500 MG in SODIUM CHLORIDE 0.9% 500 ML IV SCH (17:00)
[2019-08-29] MEDS: MEROPENEM 500 MG in SODIUM CHLORIDE 0.9% 100 ML IV SCH (18:18)
[2019-08-29] MEDS: INSULIN LISPRO 100 UNIT/ML SUBCUT SCH (18:25)
[2019-08-29 23:00] LABS: Apearance,Urine CLOUDY (Clear); Bilirubin,Urine Negative (Negative); Blood, Urine Small mg/dL (Negative); Glucose,Urine (UA) >=500 mg/dL (Negative); Ketones,Urine Negative (Negative); Mucus,Urine Moderate /LPF (Occasional); Nitrite,Urine Negative (Negative); Protein,Urine Negative; RBC,Urine 4 /HPF (0-4); Squamous Epithelial Cell,Urine Occasional /HPF (0-10); Urine Color Yellow (Yellow); Urine Specific Gravity 1.013 (1.001-1.035); Urine Urobilinogen < 2.0 EU/DL (0.2-1.0); WBC,Urine 17 /HPF (0-6)
[2019-08-30] MEDS: INSULIN REGULAR 100 UNIT/ML SUBCUT SCH ×2 (01:19→05:07)
[2019-08-30] MEDS: INSULIN LISPRO 100 UNIT/ML SUBCUT SCH ×2 (01:19→05:07)
[2019-08-30] MEDS: MEROPENEM 500 MG in SODIUM CHLORIDE 0.9% 100 ML IV SCH ×2 (01:21→09:28)
[2019-08-30] MEDS: methylPREDNISolone SOD SUC 40 MG/1 ML VIAL IV SCH ×2 (02:27→09:27)
[2019-08-30 04:59] LABS: ABG Base Excess 2.7 MMOL/L (-2.5-2.5); ABG HCO3 26.7 MMOL/L (20-26); ABG Oxygen Saturation 91.4 % (95-100); ABG PCO2 61.4 MM HG (35-48); ABG PO2 68.1 MM HG (80-95); ABG TCO2 27.4 MMOL/L (23-27); Allen Test Positive; Pt O2 Delivery Device Ventilator
[2019-08-30 05:10] LABS: Basophils % 0.2 % (0.0-0.8); Hematocrit 43.3 VOL% (42.0-52.0); Hemoglobin 12.7 GM/DL (14.0-18.0); Immature Granulocytes % 0.5 %; Immature Granulocytes Absolute 0.14 #; Lymphocytes # 0.1 10*3/uL (1.4-4.0); Lymphocytes % 0.3 % (21.2-54.2); Mean Corpuscular HGB Conc 29.3 GM/DL (32-36); Mean Corpuscular Volume 94.1 FL (87-102); Mean Platelet Volume 11.2 FL (9.6-12.0); Monocytes % 3.9 % (1.7-12.7); NRBC # 0.04 10*3/uL; Neutrophils % 95.1 % (38.7-73.9); Platelet Count 336 T/CUMM (130-400); Red Cell Distribution Width 14.6 % (9.3-17.3); White Blood Count 25.6 T/CUMM (4-12)
[2019-08-30 05:26] LABS: Osmolality,Calculated 338.4 MOS/KG (273-304)
[2019-08-30] MEDS: MIDAZOLAM 100 MG in SODIUM CHLORIDE 0.9% 80 ML IV PRN (05:58)
[2019-08-30] MEDS: dilTIAZem Drip 125 MG/125 ML PREMIX IV SCH (05:59)
[2019-08-30 06:05] LABS: Segmented Neutrophils 96 % (50-85); Total Cells Counted 100
[2019-08-30 06:06] LABS: Anisocytosis 1+; Platelet Estimate Normal
[2019-08-30] MEDS: PANTOPRAZOLE 40 MG VIAL IV SCH (09:27)
[2019-08-30] MEDS: MINERAL OIL/PETROLATUM OPH OINT 3.5 GM TUBE BOTH EYES SCH (09:28)
[2019-08-30] MEDS: FOLIC ACID 1 MG TABLET PO SCH (09:28)
[2019-08-30] MEDS: ROCURONIUM 500 MG in SODIUM CHLORIDE 0.9% 500 ML IV SCH (09:39)
[2019-08-30] MEDS: INSULIN GLARGINE 100 UNIT/ML SUBCUT SCH (09:45)
[2019-08-30] MEDS ORDERED: LORazepam 2 MG/1 ML VIAL IV PRN (10:47)
[2019-08-30] MEDS ORDERED: MORPHINE 4 MG/1 ML VIAL IV PRN (10:48)
[2019-08-30] MEDS: fentaNYL 100 MCG/HR PATCH TRANSDERM SCH (10:49)
== END 2019-08-30 15:12 | disposition expired | DRG 207 ==
LOC: N.ED 10:02 → N.EDINP 12:30 → SUATTDRO 12:30 → N.2E 14:35 → N.ICU 08-17 21:42 → N.CC 08-26 19:40
PROVIDERS: ADMIT Internal Medicine; ATTEND Internal Medicine